=== PATIENT | female | born 1975 | race Caucasian/White ===

== ENCOUNTER 2017-08-24 21:13 | Inpatient (IN) ==
[2017-08-24 22:48] LABS: Basophils # 0.1 K/mcL (0.0-0.2); Basophils % 0.7 %; Eosinophils # 0.5 K/mcL (0.0-0.6); Eosinophils % 3.5 %; Hematocrit 42.2 % (35.3-44.9); Hemoglobin 14.2 g/dL (11.5-15.4); Immature Granulocytes % 0.4 % (0-4); Lymphocytes # 3.8 K/mcL (0.6-4.6); Lymphocytes % 27.5 %; Mean Corpuscular HGB Conc 33.6 g/dL (31.6-35.5); Mean Corpuscular Hemoglobin 27.2 pg (28.0-33.3); Mean Corpuscular Volume 80.7 fL (83.0-100.0); Mean Platelet Volume 9.4 fL (9.4-12.4); Monocytes # 0.9 K/mcL (0.0-1.3); Monocytes % 6.1 %; Neutrophils # 8.6 K/mcL (1.6-8.9); Platelet Count 502 K/mcL (140-400); Red Blood Count 5.23 M/mcL (3.82-4.97); Red Cell Distribution Width 13.2 % (11.5-14.5); Segmented Neutrophils % 61.8 %
[2017-08-24 23:00] LABS: BUN/Creatinine Ratio 15 (6-26); Blood Urea Nitrogen 13 mg/dL (7-20); Calcium 9.7 mg/dL (8.6-10.8); Carbon Dioxide 26 mEq/L (19-29); Chloride 102 mEq/L (98-109); Glucose 106 mg/dL (70-99); Osmolality,Calculated 283 (280-300); Potassium 3.7 mEq/L (3.5-4.5); Sodium 136 mEq/L (136-145); eGFR For African Americans > 60 (> 60); eGFR For Non-African Americans > 60 (> 60)
--- NOTE | 2017-08-24 23:04 | Emergency Department Note ---
START Narrative - START START: I examined this patient and my medical decision-making was reviewed with the Resident Physician. I agree with the documented findings, disposition and treatment plan as described except to the extent set forth below. 42 year old female with HX of HTN presnets to the ED with complaints of elevaed blood pressure and chest pain that is midsternal with radiation into the rest of her chest but not her back and shortness of breath in addition to genrealized weakness and all over numbness and tingling. WE will do HTN emergency workup and leigh admit to medicine. Nitro for pain therapy and elevated blood pressure. Sonu states that she was most recently evalted in [place] one week ago for simliar issues and they trreated her and discharge her home.
--- NOTE | 2017-08-24 23:11 | Emergency Department Note ---
Disposition Clinical Impression: Hypertensive urgency Disposition: Admitted As Inpatient Condition: Undetermined Referrals: Venus Riggs CNP [Primary Care Provider] - Forms: ED Satisfaction Letter Time of Disposition: 00:11 General Adult HPI - General Chief complaint: ED Shortness of Breath/Dyspnea Stated complaint: "High BP/CP/SOB" Time Seen by Provider: 08/24/17 22:38 Source: patient, family Mode of arrival: ambulatory Limitations: no limitations Nursing Notes Reviewed: Yes Vital Signs Reviewed: Yes - History of Present Illness HPI Narrative: 42-year-old female with history of hypertension arrives [facility] emergency department after experiencing multiple episodes of severe hypertension with a systolic in the 250s. The patient was seen a few days ago at [facility], [place] where she had labs and EKG the patient states that she began experiencing similar symptoms earlier this evening which included some bilateral numbness and tingling in hands and feet as well as a headache. The patient has had some intermittent chest pains as well. The patient denies any other complaints at this time is resting comfortably in the room but states that she has been expressing some blurred vision intermittently. She states she has been taking her medication as prescribed but denies any other complaints. Systolic blood pressure upon arrival to the emergency departments 245. Onset (ago): day(s) (3-5) Location: head, chest Radiation: non-radiation Pain Severity: mild Pain Scale: 2 Quality: aching Consistency: intermittent Improves with: nothing Worsens with: nothing Associated symptoms: Reports: denies other symptoms Treatments Prior to Arrival: none - Related Data Home Medications Medication Instructions Recorded Confirmed Lisinopril [Zestril] 20 mg PO DAILY 01/31/16 01/31/16 Meloxicam 15 mg PO DAILY 01/31/16 01/31/16 Allergies Allergy/AdvReac Type Severity Reaction Status Date / Time morphine Allergy thought Verified 08/24/17 21:38 she was having a heart attack naproxen Allergy flu like Verified 08/24/17 21:38 symptoms All systems ED: reviewed and negative except as stated. Constitutional: Reports: weakness. Denies: fever, chills ENT ED: Denies: congestion Cardiovascular: Reports: chest pain. Denies: dyspnea on exertion, orthopnea, edema Respiratory: Denies: dyspnea Gastrointestinal: Denies: abdominal pain, nausea, vomiting Genitourinary: Denies: urgency, dysuria Musculoskeletal: Denies: back pain, neck pain, arthralgia, myalgia Neurological: Reports: headache. Denies: weakness, numbness, paresthesias, confusion Past Medical History - Past Medical History Attestation: Yes The following information was validated with the patient. Source: patient Medical history: Reports: arthritis, hypertension Surgical history: Reports: non-contributory Psychiatric history: Reports: no psych history FINANCIAL REP history: Reports: bilateral tubal ligation - Social History Smoking Status: Never smoker Smokeless Tobacco Status: No Alcohol use: Reports: none Drug use: Reports: none Physical Exam - General Limitations: no limitations General appearance: alert, in no apparent distress - Head Head exam: atraumatic, normocephalic, normal inspection - Eye Eye exam: Present: normal appearance, PERRL, EOMI - ENT ENT exam: normal exam, normal oropharynx, mucous membranes moist - Neck Neck exam: Present: normal inspection, full ROM, trachea midline Course Vital Signs Temperature 98.1 F 08/24/17 21:32 Pulse Rate 93 08/24/17 21:32 Respiratory Rate 20 08/24/17 21:32 Blood Pressure 232/153 08/24/17 21:32 O2 Sat by Pulse Oximetry 100 08/24/17 21:32 Temperature 98.1 F 08/24/17 21:32 Pulse Rate 82 08/25/17 00:02 Respiratory Rate 18 08/25/17 00:02 Blood Pressure 200/112 08/25/17 00:02 O2 Sat by Pulse Oximetry 97 08/25/17 00:02 Oxygen Delivery Oxygen Delivery Room Air Medical Decision Making - [facility] Narrative Medical decision making narrative: Patient's workup here in the emergency department demonstrates no acute process. I am concerned about the patient's blood pressure as her systolic was in the 240s. The patient was symptomatically at that time. She is feeling much better after receiving 3 nitroglycerin and her blood pressure dropping into the 190s systolic. The patient is a return to the emergency department after sprinting another episode. I believe the patient should be admitted to the hospital for further care and workup with concern for worsening hypertension. Accepted b Dr. Valenzuela. - Lab Data Lab results reviewed: Yes I reviewed the patient's lab results. Result diagrams: 08/24/17 22:40 11/28/17 22:40 Lab Results 08/24/17 08/24/17 08/24/17 Range/Units 22:40 22:40 22:40 WBC 13.9 H (4.3-11.1) K/mcL RBC 5.23 H (3.82-4.97) M/mcL Hgb 14.2 (11.5-15.4) g/dL Hct 42.2 (35.3-44.9) % MCV 80.7 L (83.0-100.0) fL MCH 27.2 L (28.0-33.3) pg MCHC 33.6 (31.6-35.5) g/dL RDW 13.2 (11.5-14.5) % Plt Count 502 H (140-400) K/mcL MPV 9.4 (9.4-12.4) fL Immature Gran % 0.4 (0-4) % Seg Neutrophils % 61.8 % Lymphocytes % 27.5 % Monocytes % 6.1 % Eosinophils % 3.5 % Basophils % 0.7 % Neutrophils # 8.6 (1.6-8.9) K/mcL Lymphocytes # 3.8 (0.6-4.6) K/mcL Monocytes # 0.9 (0.0-1.3) K/mcL Eosinophils # 0.5 (0.0-0.6) K/mcL Basophils # 0.1 (0.0-0.2) K/mcL Sodium 136 (136-145) mEq/L Potassium 3.7 (3.5-4.5) mEq/L Chloride 102 (98-109) mEq/L Carbon Dioxide 26 (19-29) mEq/L BUN 13 (7-20) mg/dL Creatinine 0.86 (0.57-1.11) mg/dL Est GFR ( Amer) > 60 (> 60) Est GFR (Non-Af Amer) > 60 (> 60) BUN/Creatinine Ratio 15 (6-26) Glucose 106 H (70-99) mg/dL Calculated Osmolality 283 (280-300) Calcium 9.7 (8.6-10.8) mg/dL Troponin I 0.00 (0-0.03) ng/mL - Radiology Data Radiology results reviewed: Yes I reviewed the patient's radiology results.
[2017-08-24] MEDS ORDERED: *HR* Labetalol 20 MG/4 ML SYRINGE IVP ONE (23:23)
[2017-08-24] MEDS: Nitroglycerin 0.4 MG TAB.SUBL SL PRN ×2 (23:37→23:49)
[2017-08-25] MEDS: Nitroglycerin 0.4 MG TAB.SUBL SL PRN (00:02)
[2017-08-25] MEDS ORDERED: *HR* Labetalol 20 MG/4 ML SYRINGE IVP ONE (00:09)
[2017-08-25] MEDS ORDERED: Acetaminophen 325 MG TABLET PO PRN (01:05)
[2017-08-25] MEDS ORDERED: Naloxone 0.4 MG/ML INJ IVP PRN (01:05)
[2017-08-25] MEDS ORDERED: Acetaminophen/Butalbital/CaffeineTABLET PO PRN (01:07)
[2017-08-25] MEDS ORDERED: *HR* Labetalol 20 MG/4 ML SYRINGE IVP PRN (01:08)
--- NOTE | 2017-08-25 01:14 | Internal Med History&Physical ---
Date of Encounter: 08/25/17 Time of Encounter: 01:10 Assessment and Plan (1) Hypertensive crisis Current visit: Yes Status: Acute unable to get gtt therapy due to lack of ICU or stepdown beds Trial of IV hydralazine, labetalol prn Start imdur, continue lisinopril check renin, aldosterone attempt to slowly decrease BP and increase PO meds over next 24-48 hours tele, pulse ox Internal Medicine - H&P: HPI Chief complaint: vertigo, lightheadedness, SOB History of present illness: Ms. Love is a 42 year old female who presents with HTN crisis. She has a hx of HTN and uses lisinopril at home. Symptoms first began on wednesday evening when she reported CP - stabbing pain, blurry vision and SOB. She went to [facility] and was treated for HTN crisis and subsequently discharge with follow up with Dr Tavo escalante locally. This evening, while watching TV, she reported feeling lightheaded associated with vertigo and SOB. No improvement with time. Presentation to the ED found SBP >200 consistently. Given the lack of step down or ICU beds, she was not able to get gtt therapy. EKG reviewed by self with rate 86, NSR, no- overt ST-T changes CT/CT head/brain wo con IMPRESSION: No acute intracranial abnormality. XR/XR chest 1V IMPRESSION: Linear opacity in the left mid lung, favored to represent scarring or atelectasis. Otherwise, negative portable chest. Past Med Surg Social Fam HX - Past Medical History Medical history: arthritis, hypertension Psychiatric history: no psych history - Past Surgical History Surgical History: non-contributory - Social History Smoking Status: Never smoker Smokeless Tobacco Status: No Alcohol use: none Drug use: none Internal Medicine - H&P: Meds Lisinopril [Zestril] 20 mg PO DAILY 01/31/16 [History] Meloxicam 15 mg PO DAILY 01/31/16 [History] 3 Allergy/AdvReac Type Severity Reaction Status Date / Time morphine Allergy thought Verified 08/24/17 21:38 she was having a heart attack naproxen Allergy flu like Verified 08/24/17 21:38 symptoms All Systems PM: A 10-system review of systems was performed and is negative for pertinent findings except as documented above in the HPI. Review of systems: ROS 14 point review of systems reviewed as best as possible given presentation. Pertinent positive or negative as per HPI or otherwise reviewed as negative - Constitutional Vitals: Temp Pulse Resp BP Pulse Ox 98.1 F 82 18 189/104 97 08/24/17 21:32 08/25/17 00:34 08/25/17 00:34 08/25/17 00:34 08/25/17 00:34 Exam: General - AAO x 3 Psych - Appropriate affect/speech. No agitation Eyes - DANIEL. Eye lids intact. No scleral icterus Neuro - No gross peripheral or central neuro deficits with intact CN 2-12 exam Heart - Sinus. RRR. S1 and S2 present. No added HS/murmurs appreciated. No elevated JVD appreciated. Lung - Adequate air entry b/l, No crackles/wheezes appreciated GI - Soft, non-tender. No hepatosplenomegaly/ascites. BS+ - No CVA/suprapubic tenderness or palpable bladder distension Skin - Intact. No rash/petechiae/ecchymosis. Warm extremities MSK - Joints with normal ROM. No joint swellings Internal Med - H&P Results - Labs CBC & Chem 7: 08/24/17 22:40 08/24/17 22:40
[2017-08-25] MEDS: Isosorbide MONOnitrate (24 HR) 60 MG TAB.ER.24H PO SCH ×2 (03:57→08:16)
[2017-08-25] MEDS ORDERED: *HR* Enoxaparin 40 MG/0.4 ML SYRINGE SQ SCH (06:00)
[2017-08-25] MEDS ORDERED: Lisinopril 20 MG TABLET PO SCH (09:00)
[2017-08-25 10:57] VITALS: BP 129/71
--- NOTE | 2017-08-25 11:31 | Discharge Summary ---
Date of Encounter: 09/24/17 Time of Encounter: 11:29 - Discharge Diagnosis (1) Hypertensive urgency Priority: Primary Status: Acute - Discharge Medications Prescriptions: Isosorbide MONOnitrate (24 HR) [Imdur] 30 mg PO DAILY #30 tab.er.24h Home Medications: Isosorbide MONOnitrate (24 HR) [Imdur] 30 mg PO DAILY #30 tab.er.24h 08/25/17 [ Rx] Lisinopril [Zestril] 10 mg PO DAILY 08/25/17 [History] Lisinopril [Zestril] 20 mg PO DAILY tablet 08/25/17 [Rx] Allergies/Adverse Reactions: 3 Allergy/AdvReac Type Severity Reaction Status Date / Time morphine Allergy thought Verified 08/24/17 21:38 she was having a heart attack naproxen Allergy flu like Verified 08/24/17 21:38 symptoms Date of admission: 08/25/17 01:05 Primary care physician: Venus Riggs CNP Discharging clinician: Nadia Angeles Anticipated date of discharge: 08/25/17 - Patient Status Disposition: Home, Self-Care Condition: Good Functional capacity at discharge: independent ambulation Overall status at discharge: patient is progressing back to baseline - Discharge Instructions Instructions: Chronic Hypertension (DC) Follow Up With: Veuns Riggs CNP [Primary Care Provider] - Additional Instructions: F/up with PCP in 1-2 weeks- patient would like a new PCP F/up with Cardiology as scheduled - Diet and Activity Activity: resume usual activities as tolerated Diet: low salt diet Hospital course: Ms. Love is a 42 year old female with history of poorly controlled hypertension, who was admitted with chest pain, shortness of breath and dizziness and was noted to have hypertensive urgency with systolic blood pressure greater than 200. Her blood pressure began to improve with nitroglycerin given in the emergency room. She was not started on IV drips due to unavailability of ICU our stepdown unit beds. She did respond to oral and when necessary IV medications. Lisinopril was resumed and Imdur were started. Patient was doing much better this morning upon my evaluation and denied any complaints. Her blood pressure has been appropriately controlled since admission and she is medically stable for discharge with outpatient follow-up. Dietary salt restriction and moderate exercise have been reinforced along with medication compliance and patient verbalized understanding. - Time Spent with Patient Total time spent providing and/or coordinating discharge services: Greater than 30 minutes (40 min) - Constitutional Vitals: Temp Pulse Resp BP Pulse Ox 98.1 F 74 18 129/71 96 08/25/17 10:54 08/25/17 10:54 08/25/17 10:54 08/25/17 10:54 08/25/17 10:54 General appearance: Present: A&O X 3, answers questions appropriately - Respiratory Respiratory exam: Present: CTAB. Absent: accessory muscle use, rales, rhonchi, wheezes - Cardiovascular Cardiovascular exam: Present: RRR, +S1, +S2. Absent: diastolic murmur, gallop, rubs, systolic murmur
--- NOTE | 2017-08-27 15:54 | Electrocardiograph Report ---
[place] [id number] Test Date: 2017-08-24 Pat Name: Bia Love Department: 102 Room: 2A48 Gender: F Facility Maintenance Supervisor: Nabil : [id number] Requested By: May Pulliam Order Number: [id number] Reading MD: Nathaniel Arellano Measurements Intervals [place] Rate: 86 P: 31 TX: 162 QRS: -19 QRSD: 97 T: 69 QT: 384 QTc: 428 Interpretive Statements SINUS RHYTHM Electronically Signed On 08-27-2017 15:52:39 EST by Nathaniel Arellano
== END 2017-08-25 12:50 | disposition home or self-care (01) | DRG 305 ==
LOC: EMEROO 21:13 → 2NNU 21:13 → SUATTDRO 08-25 01:02 → 2ANU 08-25 02:07
PROVIDERS: ADMIT Pediatrics; ATTEND Internal Medicine

== ENCOUNTER 2020-01-01 03:50 | Observation (INO) ==
[2020-01-01] MEDS: Nitroglycerin 0.4 MG TAB.SUBL SL PRN ×2 (04:39→04:45)
[2020-01-01 04:51] LABS: INR 0.9; Prothrombin Time 10.1 Seconds (9.4-12.1)
[2020-01-01 04:54] LABS: Activated Partial Thrombo Time 23.1 Seconds (26.0-36.0)
[2020-01-01 05:02] LABS: Basophils # 0.1 K/mcL (0.0-0.2); Basophils % 0.6 %; Eosinophils # 0.3 K/mcL (0.0-0.6); Eosinophils % 2.1 %; Hematocrit 43.8 % (35.3-44.9); Hemoglobin 14.1 g/dL (11.5-15.4); Immature Granulocytes % 0.6 % (0-4); Lymphocytes # 3.9 K/mcL (0.6-4.6); Lymphocytes % 27.7 %; Mean Corpuscular HGB Conc 32.2 g/dL (31.6-35.5); Mean Corpuscular Hemoglobin 27.3 pg (28.0-33.3); Mean Corpuscular Volume 84.9 fL (83.0-100.0); Mean Platelet Volume 9.9 fL (9.4-12.4); Monocytes # 0.8 K/mcL (0.0-1.3); Monocytes % 5.5 %; Platelet Count 415 K/mcL (140-400); Red Blood Count 5.16 M/mcL (3.82-4.97); Segmented Neutrophils % 63.5 %; White Blood Count 14.1 K/mcL (4.3-11.1)
[2020-01-01 05:09] LABS: BUN/Creatinine Ratio 16 (6-26); Blood Urea Nitrogen 11 mg/dL (6-20); Calcium 9.2 mg/dL (8.6-10.3); Carbon Dioxide 23 mEq/L (23-29); Chloride 105 mEq/L (98-107); Glucose 115 mg/dL (70-105); Osmolality,Calculated 282 (280-300); Potassium 3.7 mEq/L (3.5-5.1); Sodium 136 mEq/L (136-145); eGFR For African Americans > 60 (> 60); eGFR For Non-African Americans > 60 (> 60)
[2020-01-01 05:10] LABS: Troponin I < 0.03 ng/mL (< 0.04)
[2020-01-01] MEDS ORDERED: Naloxone 0.4 MG/ML INJ IVP PRN (05:46)
[2020-01-01] MEDS ORDERED: Acetaminophen 325 MG TABLET PO PRN (06:21)
[2020-01-01] MEDS ORDERED: amLODIPine 5 MG TABLET PO SCH (09:00)
[2020-01-01] MEDS ORDERED: Isosorbide MONOnitrate (24 HR) 60 MG TAB.ER.24H PO SCH (09:00)
[2020-01-01] MEDS ORDERED: DilTIAZem CD (24hr) 120 MG CAP.ER.24H PO SCH (09:00)
[2020-01-01] MEDS ORDERED: lisinopriL 20 MG TABLET PO SCH (09:00)
[2020-01-01] MEDS: Aspirin Enteric Coated 81 MG Tablet PO SCH (10:05)
[2020-01-01 10:17] LABS: Chol/HDL Ratio 5.7 (0-4.9)
[2020-01-01] MEDS ORDERED: amLODIPine 5 MG TABLET PO ONE (11:49)
[2020-01-01] MEDS ORDERED: lisinopriL 20 MG TABLET PO ONE (11:57)
[2020-01-01] MEDS: NIFEdipine XL (24 HR) 60 MG TAB.ER.24 PO SCH (12:33)
[2020-01-01 16:36] LABS: Estimated Average Glucose 128 mg/dl
[2020-01-01] MEDS: *HR* Heparin 5,000 UNIT/ML VIAL SQ SCH (16:46)
[2020-01-01] MEDS: Metoprolol XL (24 HR) Succ 50 MG TAB.ER.24H PO SCH (20:27)
[2020-01-02 01:07] LABS: Basophils # 0.1 K/mcL (0.0-0.2); Basophils % 0.7 %; Eosinophils # 0.4 K/mcL (0.0-0.6); Hemoglobin 13.5 g/dL (11.5-15.4); Immature Granulocytes % 0.7 % (0-4); Lymphocytes % 27.9 %; Mean Corpuscular HGB Conc 32.9 g/dL (31.6-35.5); Mean Corpuscular Volume 85.1 fL (83.0-100.0); Mean Platelet Volume 9.8 fL (9.4-12.4); Monocytes # 0.9 K/mcL (0.0-1.3); Monocytes % 5.9 %; Neutrophils # 8.9 K/mcL (1.6-8.9); Platelet Count 416 K/mcL (140-400); Red Blood Count 4.82 M/mcL (3.82-4.97); Red Cell Distribution Width 13.1 % (11.5-14.5); Segmented Neutrophils % 61.8 %; White Blood Count 14.3 K/mcL (4.3-11.1)
[2020-01-02] MEDS: *HR* Heparin 5,000 UNIT/ML VIAL SQ SCH (05:30)
[2020-01-02 07:10] VITALS: BP 131/71
[2020-01-02] MEDS: Aspirin Enteric Coated 81 MG Tablet PO SCH (07:40)
[2020-01-02] MEDS: NIFEdipine XL (24 HR) 60 MG TAB.ER.24 PO SCH (07:40)
[2020-01-02] MEDS: Metoprolol XL (24 HR) Succ 50 MG TAB.ER.24H PO SCH (07:41)
[2020-01-02] MEDS ORDERED: amLODIPine 5 MG TABLET PO SCH (09:00)
[2020-01-02] MEDS ORDERED: lisinopriL 20 MG TABLET PO SCH (09:00)
[2020-01-02] MEDS ORDERED: amLODIPine 5 MG TABLET PO ONE (11:20)
== END 2020-01-02 11:34 | disposition home or self-care (01) ==
LOC: EMEROOARM 03:50 → 3BNU 03:50 → SUATTDRO 05:34 → 3BNU 06:01
PROVIDERS: ADMIT Internal Medicine; ATTEND Internal Medicine

== ENCOUNTER 2021-11-08 20:40 | Observation (INO) ==
[2021-11-08] MEDS ORDERED: Nitroglycerin 0.4 MG TAB.SUBL SL PRN (21:10)
[2021-11-08] MEDS ORDERED: Acetaminophen 325 MG TABLET PO ONE (21:25)
[2021-11-08 21:29] LABS: Basophils # 0.1 K/mcL (0.0-0.2); Basophils % 0.5 %; Eosinophils # 0.3 K/mcL (0.0-0.6); Eosinophils % 1.7 %; Hematocrit 42.1 % (35.3-44.9); Hemoglobin 13.9 g/dL (11.5-15.4); Immature Granulocytes % 0.6 % (0-4); Lymphocytes # 2.3 K/mcL (0.6-4.6); Lymphocytes % 13.9 %; Mean Corpuscular Hemoglobin 27.6 pg (28.0-33.3); Mean Corpuscular Volume 83.5 fL (83.0-100.0); Mean Platelet Volume 9.6 fL (9.4-12.4); Monocytes % 5.9 %; Neutrophils # 12.5 K/mcL (1.6-8.9); Platelet Count 514 K/mcL (140-400); Red Blood Count 5.04 M/mcL (3.82-4.97); Red Cell Distribution Width 13.8 % (11.5-14.5); Segmented Neutrophils % 77.4 %; White Blood Count 16.2 K/mcL (4.3-11.1)
[2021-11-08 21:41] LABS: Prothrombin Time 11.4 Seconds (9.4-12.1)
[2021-11-08 21:43] LABS: Activated Partial Thrombo Time 30.3 Seconds (26.0-36.0)
[2021-11-08 21:53] LABS: Blood Urea Nitrogen 27 mg/dL (6-20); Calcium 10.1 mg/dL (8.6-10.3); Carbon Dioxide 22 mEq/L (23-29); Chloride 105 mEq/L (98-107); Glucose 107 mg/dL (70-105); Osmolality,Calculated 290 (280-300); Potassium 3.5 mEq/L (3.5-5.1); Sodium 137 mEq/L (136-145)
[2021-11-08 21:54] LABS: Troponin I < 0.03 ng/mL (< 0.04)
[2021-11-08] MEDS ORDERED: Isovue-370 500 ML BOTTLE IVP ONE (22:02)
[2021-11-08] MEDS ORDERED: 0.9 % Sodium Chloride 1,000 ML IVC ONE (22:06)
[2021-11-08 23:26] LABS: BUN/Creatinine Ratio 20 (6-26); eGFR For African Americans 50 (> 60); eGFR For Non-African Americans 41 (> 60)
[2021-11-09] MEDS ORDERED: Naloxone 0.4 MG/ML INJ IVP PRN (02:32)
[2021-11-09] MEDS ORDERED: Ondansetron ODT 4 MG TAB.RAPDIS SL PRN (02:32)
[2021-11-09] MEDS ORDERED: Ipratropium/Albuterol Neb 3 ML IH PRN (02:36)
[2021-11-09] MEDS: 0.9 % Sodium Chloride 1,000 ML IVC SCH (03:11)
[2021-11-09 04:11] LABS: Adenovirus Not Detected (Not Detect); Bordetella Pertussis Not Detected (Not Detect); Chlamydophila pneumoniae Not Detected (Not Detect); Coronavirus 229E Not Detected (Not Detect); Coronavirus HKU1 Not Detected (Not Detect); Coronavirus NL63 Not Detected (Not Detect); Coronavirus OC43 Not Detected (Not Detect); Human Metapneumovirus Not Detected (Not Detect); Human Rhinovirus/Enterovirus Not Detected (Not Detect); Influenza A Subtype 2009 H1 Not Detected (Not Detect); Influenza B Not Detected (Not Detect); Mycoplasma pneumoniae Not Detected (Not Detect); Parainfluenza Virus 1 Not Detected (Not Detect); Parainfluenza Virus 2 Not Detected (Not Detect); Parainfluenza Virus 3 Not Detected (Not Detect); Parainfluenza Virus 4 Not Detected (Not Detect); Respiratory Syncytial Virus Not Detected (Not Detect); SARS-CoV-2 Not Detected (Not Detect)
[2021-11-09 04:30] LABS: Basophils # 0.1 K/mcL (0.0-0.2); Basophils % 0.5 %; Eosinophils # 0.2 K/mcL (0.0-0.6); Eosinophils % 1.4 %; Hematocrit 40.1 % (35.3-44.9); Hemoglobin 13.2 g/dL (11.5-15.4); Immature Granulocytes % 0.4 % (0-4); Lymphocytes # 3.3 K/mcL (0.6-4.6); Lymphocytes % 22.7 %; Mean Corpuscular HGB Conc 32.9 g/dL (31.6-35.5); Mean Corpuscular Hemoglobin 28.3 pg (28.0-33.3); Mean Corpuscular Volume 86.1 fL (83.0-100.0); Monocytes # 0.9 K/mcL (0.0-1.3); Monocytes % 5.8 %; Neutrophils # 10.2 K/mcL (1.6-8.9); Platelet Count 528 K/mcL (140-400); Red Blood Count 4.66 M/mcL (3.82-4.97); Red Cell Distribution Width 13.9 % (11.5-14.5); Segmented Neutrophils % 69.2 %; White Blood Count 14.7 K/mcL (4.3-11.1)
[2021-11-09 04:37] LABS: Albumin 3.9 g/dL (3.5-5.7); Albumin/Globulin Ratio 1.6 (1.1-2.2); Bilirubin,Indirect 0.3 mg/dL (0.0-1.0); Bilirubin,Total 0.3 mg/dL (0.3-1.0); Calcium 8.9 mg/dL (8.6-10.3); Chol/HDL Ratio 4.8 (0-4.9); Globulin 2.5 g/dL (2.4-3.5); Magnesium 1.8 mg/dL (1.6-2.6); Potassium 3.9 mEq/L (3.5-5.1); Total Protein 6.4 g/dL (6.4-8.9)
[2021-11-09 04:49] LABS: Thyroid Stimulating Hormone 2.018 mcIU/mL (0.340-5.600)
[2021-11-09] MEDS ORDERED: Regadenoson 0.4 MG/5 ML SYRINGE IVP ONE (07:25)
[2021-11-09 07:31] LABS: Bilirubin,Urine Negative (Negative); Blood,Urine Trace (Negative); Clarity,Urine Clear (Clear); Color,Urine Colorless (Yellow); Glucose,Urine (UA) Normal (Normal); Ketones,Urine Negative (Negative); Leukocyte Esterase,Urine Negative (Negative); Mucus,Urine Few per lpf (None-Few); Nitrite,Urine Negative (Negative); Protein,Urine Negative (Neg-Trace); RBC,Urine 0-3 per hpf (0-3); Specific Gravity,Urine > 1.030 (1.010-1.025); Squamous Epithelial Cell,Urine Few per hpf (None-Few); Urobilinogen,Urine Normal (Normal); WBC,Urine 0-3 per hpf (0-3)
[2021-11-09 07:44] LABS: Amphetamine Screen,Urine Negative ng/mL (Cutoff=1000); Barbiturate Screen,Urine Negative ng/mL (Cutoff=200); Benzodiazepines Screen,Urine Negative ng/mL (Cutoff=200); Cannabinoid Screen,Urine Negative ng/mL (Cutoff = 50); Cocaine Screen,Urine Negative ng/mL (Cutoff= 300); Opiate Screen,Urine Negative ng/mL (Cutoff=300); Phencyclidine Screen,Urine Negative ng/mL (Cutoff=25)
[2021-11-09] MEDS: Aspirin Enteric Coated 81 MG Tablet PO SCH (09:41)
[2021-11-09] MEDS: Acetaminophen 325 MG TABLET PO PRN ×2 (09:41→20:25)
[2021-11-09] MEDS: *HR* Enoxaparin 40 MG/0.4 ML SYRINGE SQ SCH (09:41)
[2021-11-09] MEDS ORDERED: *HR* Labetalol 20 MG/4 ML SYRINGE IVP ONE (23:33)
[2021-11-10] MEDS ORDERED: *HR* Labetalol 20 MG/4 ML SYRINGE IVP ONE (01:05)
[2021-11-10] MEDS: Acetaminophen 325 MG TABLET PO PRN (03:15)
[2021-11-10 04:46] LABS: Basophils # 0.1 K/mcL (0.0-0.2); Basophils % 0.8 %; Eosinophils # 0.3 K/mcL (0.0-0.6); Eosinophils % 3.2 %; Hematocrit 36.9 % (35.3-44.9); Hemoglobin 12.2 g/dL (11.5-15.4); Immature Granulocytes % 0.3 % (0-4); Lymphocytes # 3.3 K/mcL (0.6-4.6); Lymphocytes % 36.5 %; Mean Corpuscular HGB Conc 33.1 g/dL (31.6-35.5); Mean Corpuscular Hemoglobin 28.2 pg (28.0-33.3); Mean Corpuscular Volume 85.4 fL (83.0-100.0); Mean Platelet Volume 9.8 fL (9.4-12.4); Monocytes # 0.7 K/mcL (0.0-1.3); Monocytes % 7.2 %; Neutrophils # 4.7 K/mcL (1.6-8.9); Platelet Count 424 K/mcL (140-400); Red Blood Count 4.32 M/mcL (3.82-4.97); Red Cell Distribution Width 13.7 % (11.5-14.5)
[2021-11-10 05:06] LABS: BUN/Creatinine Ratio 20 (6-26); Blood Urea Nitrogen 18 mg/dL (6-20); Calcium 9.2 mg/dL (8.6-10.3); Carbon Dioxide 24 mEq/L (23-29); Chloride 107 mEq/L (98-107); Glucose 120 mg/dL (70-105); Magnesium 1.9 mg/dL (1.6-2.6); Osmolality,Calculated 289 (280-300); Phosphorous 3.4 mg/dL (2.7-4.5); Potassium 4.1 mEq/L (3.5-5.1); Sodium 138 mEq/L (136-145); eGFR For African Americans > 60 (> 60); eGFR For Non-African Americans > 60 (> 60)
[2021-11-10 07:52] VITALS: TEMP 97.9
[2021-11-10] MEDS ORDERED: Perflutren Lipid Microsphere 1.3 ML in 0.9 % Sodium Chloride 8.7 ML IVP PRN (08:03)
[2021-11-10] MEDS: Aspirin Enteric Coated 81 MG Tablet PO SCH (08:20)
[2021-11-10] MEDS: *HR* Enoxaparin 40 MG/0.4 ML SYRINGE SQ SCH (08:21)
[2021-11-10] MEDS ORDERED: Metoprolol XL (24 HR) Succ 50 MG TAB.ER.24H PO SCH (09:00)
[2021-11-10] MEDS ORDERED: lisinopriL 20 MG TABLET PO SCH (09:00)
[2021-11-10 11:14] VITALS: PULSE 59; O2SAT 97
[2021-11-10] MEDS: 0.9 % Sodium Chloride 1,000 ML IVC SCH (11:42)
[2021-11-10 12:24] VITALS: BP 137/80
[2021-11-10] MEDS ORDERED: Isosorbide MONOnitrate (24 HR) 30 MG TAB.ER.24H PO SCH (13:30)
== END 2021-11-10 14:57 | disposition home or self-care (01) ==
LOC: 3BNU 20:40 → EMEROOARM 20:40 → SUATTDRO 11-09 02:09 → 3BNU 11-09 02:45
PROVIDERS: ADMIT Internal Medicine; ATTEND Internal Medicine

== ENCOUNTER 2021-12-12 12:22 | Inpatient (IN) ==
[2021-12-12] MEDS ORDERED: Isovue-370 500 ML BOTTLE IVP ONE (12:39)
[2021-12-12] MEDS ORDERED: Aspirin 325 MG TABLET PO ONE (12:40)
[2021-12-12] MEDS ORDERED: 0.9 % Sodium Chloride 1,000 ML IVC ONE (12:41)
[2021-12-12 13:33] LABS: Basophils # 0.1 K/mcL (0.0-0.2); Basophils % 0.6 %; Eosinophils # 0.3 K/mcL (0.0-0.6); Eosinophils % 2.4 %; Hematocrit 41.4 % (35.3-44.9); Hemoglobin 13.9 g/dL (11.5-15.4); Immature Granulocytes % 0.4 % (0-4); Lymphocytes # 2.3 K/mcL (0.6-4.6); Lymphocytes % 21.7 %; Mean Corpuscular HGB Conc 33.6 g/dL (31.6-35.5); Mean Corpuscular Hemoglobin 28.1 pg (28.0-33.3); Mean Corpuscular Volume 83.8 fL (83.0-100.0); Mean Platelet Volume 10.3 fL (9.4-12.4); Monocytes # 0.8 K/mcL (0.0-1.3); Monocytes % 7.2 %; Neutrophils # 7.1 K/mcL (1.6-8.9); Platelet Count 427 K/mcL (140-400); Red Blood Count 4.94 M/mcL (3.82-4.97); Red Cell Distribution Width 14.7 % (11.5-14.5); Segmented Neutrophils % 67.7 %; White Blood Count 10.5 K/mcL (4.3-11.1)
[2021-12-12 13:35] LABS: Bilirubin,Urine Negative (Negative); Blood,Urine Negative (Negative); Clarity,Urine Clear (Clear); Color,Urine Light-Yellow (Yellow); Glucose,Urine (UA) Normal (Normal); Ketones,Urine Negative (Negative); Leukocyte Esterase,Urine Negative (Negative); Nitrite,Urine Negative (Negative); Protein,Urine Trace mg/dL (Neg-Trace); Specific Gravity,Urine 1.019 (1.010-1.025); Urobilinogen,Urine Normal (Normal)
[2021-12-12 13:48] LABS: Amphetamine Screen,Urine Negative ng/mL (Cutoff=1000); Barbiturate Screen,Urine Negative ng/mL (Cutoff=200); Benzodiazepines Screen,Urine Negative ng/mL (Cutoff=200); Cannabinoid Screen,Urine Negative ng/mL (Cutoff = 50); Cocaine Screen,Urine Negative ng/mL (Cutoff= 300); Opiate Screen,Urine Negative ng/mL (Cutoff=300); Phencyclidine Screen,Urine Negative ng/mL (Cutoff=25)
[2021-12-12 13:49] LABS: Activated Partial Thrombo Time 33.6 Seconds (26.0-36.0)
[2021-12-12 14:52] LABS: Albumin 4.5 g/dL (3.5-5.7); Albumin/Globulin Ratio 1.6 (1.1-2.2); Bilirubin,Direct 0.1 mg/dL (0.0-0.2); Bilirubin,Indirect 0.4 mg/dL (0.0-1.0); Bilirubin,Total 0.5 mg/dL (0.3-1.0); Calcium 10.1 mg/dL (8.6-10.3); Globulin 2.8 g/dL (2.4-3.5); Potassium 4.1 mEq/L (3.5-5.1); Total Protein 7.3 g/dL (6.4-8.9)
[2021-12-12 15:04] LABS: Troponin I 1.32 ng/mL (< 0.04)
[2021-12-12] MEDS ORDERED: *HR* Heparin 5,000 UNIT/ML VIAL IVP ONE (15:34)
[2021-12-12] MEDS ORDERED: *HR* Heparin 5,000 UNIT/ML VIAL IVP PRN ×2 (15:34)
[2021-12-12] MEDS: Heparin 25,000UNIT/250ML 1/2NS 25,000 UNIT/250 ML IV.SOLN IVC SCH (15:56)
[2021-12-12 16:15] LABS: Heparin anti-factor XA UFH < 0.04 IU/mL (0.30-0.70); Prothrombin Time 11.5 Seconds (9.4-12.1)
[2021-12-12] MEDS ORDERED: Naloxone 0.4 MG/ML INJ IVP PRN (16:21)
[2021-12-12] MEDS ORDERED: Nitroglycerin 0.4 MG TAB.SUBL SL PRN (16:24)
[2021-12-12 18:13] LABS: Hematocrit 39.9 % (35.3-44.9); Hemoglobin 13.1 g/dL (11.5-15.4); Mean Corpuscular HGB Conc 32.8 g/dL (31.6-35.5); Mean Corpuscular Hemoglobin 28.1 pg (28.0-33.3); Mean Corpuscular Volume 85.4 fL (83.0-100.0); Mean Platelet Volume 10.3 fL (9.4-12.4); Platelet Count 421 K/mcL (140-400); Red Blood Count 4.67 M/mcL (3.82-4.97); Red Cell Distribution Width 14.6 % (11.5-14.5); White Blood Count 11.4 K/mcL (4.3-11.1)
[2021-12-12] MEDS ORDERED: *HR* HYDROcodone/Acet 5/325 mg TABLET PO ONE (19:44)
[2021-12-12 22:21] LABS: Adenovirus Not Detected (Not Detect); Bordetella Pertussis Not Detected (Not Detect); Chlamydophila pneumoniae Not Detected (Not Detect); Coronavirus 229E Not Detected (Not Detect); Coronavirus HKU1 Not Detected (Not Detect); Coronavirus NL63 Not Detected (Not Detect); Coronavirus OC43 Not Detected (Not Detect); Human Metapneumovirus Not Detected (Not Detect); Human Rhinovirus/Enterovirus DETECTED (Not Detect); Influenza A Subtype 2009 H1 Not Detected (Not Detect); Influenza B Not Detected (Not Detect); Mycoplasma pneumoniae Not Detected (Not Detect); Parainfluenza Virus 1 Not Detected (Not Detect); Parainfluenza Virus 2 Not Detected (Not Detect); Parainfluenza Virus 3 Not Detected (Not Detect); Parainfluenza Virus 4 Not Detected (Not Detect); Respiratory Syncytial Virus Not Detected (Not Detect); SARS-CoV-2 Not Detected (Not Detect)
[2021-12-13] MEDS ORDERED: Saline Nasal Spray 44 ML BOTTLE NS PRN (00:18)
[2021-12-13 01:26] LABS: Basophils # 0.1 K/mcL (0.0-0.2); Basophils % 0.4 %; Eosinophils # 0.4 K/mcL (0.0-0.6); Eosinophils % 3.2 %; Hematocrit 36.7 % (35.3-44.9); Immature Granulocytes % 0.4 % (0-4); Lymphocytes # 3.8 K/mcL (0.6-4.6); Lymphocytes % 33.5 %; Mean Corpuscular HGB Conc 32.7 g/dL (31.6-35.5); Mean Corpuscular Volume 85.7 fL (83.0-100.0); Mean Platelet Volume 10.4 fL (9.4-12.4); Monocytes # 0.9 K/mcL (0.0-1.3); Monocytes % 8.2 %; Neutrophils # 6.1 K/mcL (1.6-8.9); Platelet Count 363 K/mcL (140-400); Red Blood Count 4.28 M/mcL (3.82-4.97); Red Cell Distribution Width 14.6 % (11.5-14.5); Segmented Neutrophils % 54.3 %; White Blood Count 11.2 K/mcL (4.3-11.1)
[2021-12-13 01:46] LABS: BUN/Creatinine Ratio 22 (6-26); Blood Urea Nitrogen 23 mg/dL (6-20); Calcium 9.1 mg/dL (8.6-10.3); Carbon Dioxide 20 mEq/L (23-29); Chloride 109 mEq/L (98-107); Glucose 103 mg/dL (70-105); Osmolality,Calculated 288 (280-300); Sodium 137 mEq/L (136-145); eGFR For African Americans > 60 (> 60); eGFR For Non-African Americans 56 (> 60)
[2021-12-13 01:53] LABS: Platelet Estimate Normal (Normal); Reactive Lymphocytes Present (Not Present)
[2021-12-13] MEDS ORDERED: Perflutren Lipid Microsphere 1.3 ML in 0.9 % Sodium Chloride 8.7 ML IVP PRN (07:54)
[2021-12-13] MEDS ORDERED: lisinopriL 20 MG TABLET PO SCH (09:00)
[2021-12-13] MEDS ORDERED: Isosorbide MONOnitrate (24 HR) 30 MG TAB.ER.24H PO SCH (09:00)
[2021-12-13] MEDS ORDERED: Furosemide 20 MG TABLET PO SCH (09:00)
[2021-12-13] MEDS ORDERED: Aspirin Enteric Coated 81 MG Tablet PO SCH (09:00)
[2021-12-13] MEDS ORDERED: Metoprolol XL (24 HR) Succ 50 MG TAB.ER.24H PO SCH (09:00)
[2021-12-13] MEDS ORDERED: *HR* Heparin 10,000 UNIT/10 ML VIAL ONE (11:41)
[2021-12-13] MEDS ORDERED: ISOVUE-370 200 ML INFUS..BTL ONE (11:41)
[2021-12-13] MEDS ORDERED: Nitroglycerin 1,000 MCG/5 ML VIAL IV ONE (11:41)
[2021-12-13] MEDS ORDERED: 0.9 % Sodium Chloride 2,000 ML ONE (11:41)
[2021-12-13] MEDS ORDERED: Heparin 1,000 UNITS/500 mL 500 ML ONE (11:41)
[2021-12-13] MEDS ORDERED: *HR* Midazolam HCl 2 MG/2 ML VIAL ONE (12:09)
[2021-12-13] MEDS ORDERED: *HR* FentaNYL (PF) 100 MCG/2 ML VIAL ONE (12:09)
[2021-12-13] MEDS: Heparin 25,000UNIT/250ML 1/2NS 25,000 UNIT/250 ML IV.SOLN IVC SCH (13:19)
[2021-12-13 16:07] VITALS: BP 95/59; TEMP 97.3; O2SAT 97
[2021-12-13 17:11] VITALS: PULSE 64
[2021-12-13] MEDS ORDERED: Metoprolol XL (24 HR) Succ 25 MG TAB.ER.24H PO SCH (18:00)
[2021-12-13] MEDS ORDERED: Ranolazine 500 MG TAB.ER.12H PO SCH (21:00)
== END 2021-12-13 17:15 | disposition home or self-care (01) | DRG 281 ==
LOC: 2ANU 12:22 → EMEROOARM 12:22 → 2ANU 17:06
PROVIDERS: ADMIT Internal Medicine; ATTEND Internal Medicine